=== PATIENT | female | born 1950 | race Hispanic/Latino ===

== ENCOUNTER 2018-12-27 07:41 | Emergency (ER) | payer MEDICARE, SELFPAY ==
[2018-12-27] MEDS ORDERED: Ondansetron PF 4 MG/2 ML Vial ONE ×2 (08:40→08:41)
[2018-12-27 09:05] LABS: ALT (SGPT) 16 U/L (8-55); AST (SGOT) 24 U/L (5-34); Albumin 3.6 g/dL (3.4-4.8); Alkaline Phosphatase 67 U/L (40-110); Anion Gap 19 mmol/L (10-20); BUN (Urea Nitrogen) 18 mg/dL (9.8-20.1); Bilirubin, Total 1.4 mg/dL (0.2-1.2); CK (CPK) 256 U/L (29-168); Calc. Creatinine Clearance 0 mL/min (70-130); Calcium 8.4 mg/dL (7.8-10.44); Carbon Dioxide 23 mmol/L (23-31); Chloride 98 mmol/L (98-107); Estimated GFR-MDRD 38; Globulin 3.3 g/dL (2.4-3.5); Glucose 258 mg/dL (80-115); Lipase 4 U/L (8-78); Potassium 3.8 mmol/L (3.5-5.1); Protein, Total 6.9 g/dL (6.0-8.3); Sodium 136 mmol/L (136-145)
[2018-12-27 09:18] LABS: Band 10 % (5-11); Hemoglobin 13.2 g/dL (12.0-16.0); Lymphocytes 5 % (21-51); MDiff Complete? YES; Mean Corpuscular HGB CONC 32.5 g/dL (32.0-36.0); Mean Corpuscular Hemoglobin 28.4 pg (27.0-31.0); Mean Corpuscular Volume 87.4 fL (78.0-98.0); Monocytes 5 % (0-10); Neutrophil 80 % (42-75); Platelet Count 167 thou/uL (130-400); Platelet Morphology Comment Appears Adequate; RBC Distribution Width 11.8 % (11.5-14.5); Red Blood Cell (RBC) Count 4.65 mill/uL (4.20-5.40)
[2018-12-27 09:28] LABS: Bilirubin Moderate (Negative); Blood, Urine Moderate (Negative); Clarity Slightly Cloudy (Clear); Glucose, Urine (Dipstick) Negative (Negative); Leukocyte Small (Negative); Nitrite Negative (Negative); Protein, Urine (Dipstick) 100 mg/dL (Neg-Trace)
[2018-12-27 09:31] LABS: Bacteria/HPF 1+ HPF (None Seen); Squamous Epithelial 0-3 HPF (0-3)
--- NOTE | 2018-12-27 09:43 | RAD ---
Frontal radiograph chest: 12/27/2018 COMPARISON: None HISTORY: Nausea and vomiting FINDINGS: There is a right-sided Port-A-Cath, distal tip overlying the region of the SVC. Portable technique and body habitus limiting detailed assessment of the chest. Right lung appears gal ar. No pneumothorax is evident on either side. There is a large rounded area of soft tissue density overlying the left lung base, likely on the basi s of soft tissue attenuation from breast shadow. This limits assessment of the left lower lobe and lingula. IMPRESSION: Suboptimal assessment of the mid left lung zone and left lung base. Study otherwise gross ly unremarkable.
[2018-12-27] MEDS ORDERED: Sodium Chloride 0.9% 500 ML ONE (10:17)
[2018-12-27] MEDS ORDERED: Cipro 250 MG TAB ONE (11:00)
== END 2018-12-27 11:08 | disposition home or self-care (01) ==
LOC: NAV ERS 07:41
DX: N39.0 Urinary tract infection, site not specified (principal); K59.00 Constipation, unspecified; E11.9 Type 2 diabetes mellitus without complications; E78.5 Hyperlipidemia, unspecified; E78.00 Pure hypercholesterolemia, unspecified; Z85.3 Personal history of malignant neoplasm of breast; Z79.84 Long term (current) use of oral hypoglycemic drugs
CPT/HCPCS: 36416; 71045; 80053; 81003; 81015; 82550; 83605; 83690; 84484; 85025; 96361; 96374; J2405; J7050

== ENCOUNTER 2019-04-26 08:13 | Outpatient (CLI) | payer MEDICARE ==
[2019-04-26 08:52] LABS: ALT (SGPT) 17 U/L (8-55); AST (SGOT) 19 U/L (5-34); Albumin 3.9 g/dL (3.4-4.8); Alkaline Phosphatase 92 U/L (40-110); Anion Gap 14 mmol/L (10-20); BUN (Urea Nitrogen) 11 mg/dL (9.8-20.1); Bilirubin, Total 0.6 mg/dL (0.2-1.2); Calc. Creatinine Clearance 0 mL/min (70-130); Carbon Dioxide 25 mmol/L (23-31); Chloride 104 mmol/L (98-107); Estimated GFR-MDRD 66; Globulin 3.2 g/dL (2.4-3.5); Glucose 152 mg/dL (80-115); Potassium 4.1 mmol/L (3.5-5.1); Protein, Total 7.1 g/dL (6.0-8.3); Sodium 139 mmol/L (136-145)
[2019-04-26 08:56] LABS: #Eosinphils 0.2 thou/uL (0.0-0.7); #Monocytes 0.7 thou/uL (0.11-0.59); #Neutrophils 3.7 thou/uL (1.40-6.50); %Basophils 0.8 % (0.0-1.0); %Eosinophils 3.1 % (0.0-10.0); %Lymphocytes 17.8 % (21.0-51.0); %Neutrophils 65.3 % (42.0-75.0); Hemoglobin 13.7 g/dL (12.0-16.0); Mean Corpuscular HGB CONC 32.2 g/dL (32.0-36.0); Mean Corpuscular Hemoglobin 28.3 pg (27.0-31.0); Mean Corpuscular Volume 87.6 fL (78.0-98.0); Mean Platelet Volume 7.8 fL (7.4-10.4); Platelet Count 176 thou/uL (130-400); RBC Distribution Width 12.7 % (11.5-14.5); Red Blood Cell (RBC) Count 4.85 mill/uL (4.20-5.40); White Blood Cell (WBC) Count 5.7 thou/uL (4.8-10.8)
[2019-04-26] MEDS ORDERED: Iopamidol 370 76% 100 ML VIAL ONE (09:00)
--- NOTE | 2019-04-26 10:01 | CT ---
CT Chest W Con HISTORY: Breast cancer COMPARISON: None. FINDINGS: There are postop changes of left mastectomy. No mediastinal, hilar or axillary mass or lymp hadenopathy seen. No pleural or pericardial effusions are identified. Bullous changes in the right lower lobe. There is patchy consolidation in the right perihilar and infrahilar regions. No lung nodu les or masses are seen. There are changes in the spine. Upper abdominal tomograms demonstrate postop changes of cholecystectomy. A small is noted. IMPRESSION: Right perihilar and infrahilar areas of mild consolidation are likely due to infection. B ronchoscopy would be helpful to confirm and exclude neoplasia.
[2019-04-26 10:37] LABS: Thyroid Stimulating Hormone 1.3703 uIU/mL (0.35-4.94)
[2019-04-26 10:38] LABS: Follow-up Hematology Comp? YES; Follow-up Result - Hematology REPORT FAXED
[2019-04-26 10:40] LABS: Follow-up Result - Chemistry REPORT FAXED
[2019-04-26 10:41] LABS: Follow-up Chemistry Comp? NO
[2019-04-26 12:59] LABS: Free Thyroxine Index 2.24 (1.4-3.1); T4 7.7 ug/dL (4.87-11.72)
[2019-04-26 14:39] LABS: CEA, Serum 2.98 ng/mL (< or = 5.0)
== END 2019-04-26 08:14 | disposition home or self-care (01) ==
LOC: NAV CT 08:13 → NAV RAD 08:14
PROVIDERS: ATTEND Radiology Body Imaging
DX: C34.90 Malignant neoplasm of unspecified part of unspecified bronchus or lung (principal); I10 Essential (primary) hypertension; E11.9 Type 2 diabetes mellitus without complications; Z85.3 Personal history of malignant neoplasm of breast
CPT/HCPCS: 36415; 71260; 80053; 82378; 84436; 84443; 84479; 85025; Q9967